=== PATIENT | male | born 1965 | race Caucasian/White ===

== ENCOUNTER 2018-03-17 09:34 | Day surgery (SDC) | payer BC ==
[2018-03-17 10:28] LABS: Hematocrit 52.2 % (39.6-49.0)
== END 2018-03-17 11:45 | disposition home or self-care (01) ==
LOC: DS 09:34
PROVIDERS: ATTEND Family Medicine
DX: D45 Polycythemia vera (principal)
CPT/HCPCS: 36415; 85014; 85018; 99195